=== PATIENT | female | born 1955 | race Caucasian/White ===

== ENCOUNTER 2017-01-27 16:35 | Emergency (ER) | payer MEDICAID ==
[~2017-01-27] VITALS: Ht 162.6 cm; Wt 127.6 kg
[2017-01-27 17:07] VITALS: BP 154/78
--- NOTE | 2017-01-27 19:11 | NUR ---
Patient to bed 3 at this time.
--- NOTE | 2017-01-27 19:12 | NUR ---
62/F CAME IN DUE TO C/O BLE SHARP PAIN X 1 MONTH--UNABLE TO AMBULATE WITHOUT PAIN, PAIN TO FEET, KNEE, AND THIGHS- PT DESCRIBES THE PAIN SHOOTING, HX: UNRESULTED DVT, CVA, HTN, BODERLINE DM. PT STATED SHE HAS BEEN TAKING 9 TABS OF TYLENOL DAILY. PAIN SCALE 10/10. DENIES N/V/D, DENIES SOB, FEVER, COUGH. ERMD AWARE.
--- NOTE | 2017-01-27 19:15 | NUR ---
DR. TORIBIO AT BEDSIDE EVALUATING PATIENT
[2017-01-27] MEDS ORDERED: IBUPROFEN 800 MG TAB PO ONE (19:25)
--- NOTE | 2017-01-27 19:50 | NUR ---
US TECH AT BEDSIDE. DAUGHTER AT BEDSIDE.
[2017-01-27 19:58] LABS: BASOPHILS # (AUTO) 0.1 K/uL (0.00-0.22); BASOPHILS % (AUTO) 1.3 % (0.0-2.0); EOSINOPHILS # (AUTO) 0.4 K/uL (0-0.4); EOSINOPHILS % (AUTO) 4.8 % (0.0-4.0); HEMATOCRIT 37.8 % (36-48); HEMOGLOBIN 12.1 g/dL (12.0-16.0); LYMPHOCYTES # (AUTO) 2.5 K/uL (2.5-16.5); LYMPHOCYTES % (AUTO) 33.9 % (20.5-51.1); MEAN CORPUSCULAR HEMOGLOBIN 30 pg (27-31); MEAN CORPUSCULAR HGB CONC 32 g/dL (33-37); MEAN CORPUSCULAR VOLUME 93 fL (80-94); MONOCYTES # (AUTO) 0.5 K/uL (0.8-1.0); MONOCYTES % (AUTO) 7.1 % (1.7-9.3); NEUTROPHILS % (AUTO) 52.9 % (42.2-75.2); PLATELET COUNT (AUTO) 258 K/uL (140-450); RED BLOOD CELL COUNT(AUTO) 4.08 MIL/uL (4.20-5.40); RED CELL DISTRIBUTION WIDTH 14.3 % (11.6-13.7); WHITE BLOOD COUNT (AUTO) 7.5 K/uL (4.8-10.8)
[2017-01-27 20:11] LABS: ANION GAP 14.9 (8-16); CALCIUM 8.8 mg/dL (8.5-10.1); CARBON DIOXIDE 23.9 mmol/L (21-32); CREATININE 0.8 mg/dL (0.6-1.3); POTASSIUM 3.8 mmol/L (3.5-5.1)
[2017-01-27 20:17] LABS: ALBUMIN 3.8 g/dL (3.4-5.0); TOTAL BILIRUBIN 0.3 mg/dL (0.0-1.0); TOTAL PROTEIN, SERUM 7.5 g/dL (6.4-8.2)
--- NOTE | 2017-01-27 21:47 | NUR ---
DR. TORIBIO AT BEDSIDE REEVALUATING PT.
[2017-01-27 22:02] VITALS: BP 138/76
--- NOTE | 2017-01-27 22:02 | NUR ---
Patient discharged with v/s stable. Written and verbal after care instructions given and explained. Patient alert, oriented and verbalized understanding of instructions. Ambulatory with steady gait. All questions addressed prior to discharge. ID band removed. Patient advised to follow up with PMD. Rx of GABAPENTIN 300MG CAP 1 CAP ORALLY 3 TIMES A DAY NEEDED, MEDROL DOSEPAK 4MG TAB TAKE DIRECTED ON PACKAGE given. Patient educated on indication of medication including possible reaction and side effects. Opportunity to ask questions provided and answered.
== END 2017-01-27 22:02 | disposition home or self-care (01) ==
LOC: MED 16:35
DX: M54.42 Lumbago with sciatica, left side (principal); M54.41 Lumbago with sciatica, right side; G62.9 Polyneuropathy, unspecified; R73.9 Hyperglycemia, unspecified; Z86.718 Personal history of other venous thrombosis and embolism; Z88.5 Allergy status to narcotic agent
CPT/HCPCS: 36415; 80053; 83036; 85025; 93970; 99285; Q0092